=== PATIENT | male | born 1980 | race Caucasian/White ===

== ENCOUNTER 2022-10-14 17:42 | Inpatient (IN) | payer OTHER ==
[~2022-10-14] VITALS: Ht 177.8 cm; Wt 78.2 kg
[2022-10-14 18:14] LABS: BASOPHILS ABSOLUTE AUTO 0.01 K/mm3 (0.00-0.23); BASOPHILS PERCENT AUTO 0 % (0-2); EOSINOPHILS PERCENT AUTO 0 % (0-6); Hematocrit 47.4 % (37.0-53.0); Hemoglobin 16.7 g/dL (13.5-17.5); IMMATURE GRAN ABSOLUTE AUTO 0.04 K/mm3 (0.00-0.10); IMMATURE GRAN PERCENT AUTO 0 % (0-1); LYMPHOCYTES ABSOLUTE AUTO 0.69 K/mm3 (0.84-5.20); LYMPHOCYTES PERCENT AUTO 5 % (21-46); MONOCYTES ABSOLUTE AUTO 0.51 K/mm3 (0.16-1.47); MONOCYTES PERCENT AUTO 4 % (4-13); Mean Corpuscular HGB 30.1 pg (26.0-34.0); Mean Corpuscular HGB Conc 35.2 g/dL (31.5-36.5); Mean Corpuscular Volume 85 fL (80-100); Mean Platelet Volume 10.6 fL (9.1-12.4); NEUTROPHILS ABSOLUTE AUTO 12.24 K/mm3 (1.96-9.15); NEUTROPHILS PERCENT AUTO 91 % (41-73); Platelet Count 294 K/mm3 (150-400); RDW Standard Deviation 37.4 fL (35.1-46.3); Red Blood Cell Count 5.55 M/mm3 (4.30-5.90); White Blood Cell Count 13.49 K/mm3 (4.00-11.30)
[2022-10-14 18:42] LABS: Albumin, Blood 4.4 g/dL (3.4-5.0); Albumin/Globulin Ratio 1.3 (0.8-1.8); Bilirubin, Total 0.7 mg/dL (0.1-1.0); Bun/Creatinine Ratio 26.1 (12.0-20.0); Calcium, Blood 9.6 mg/dL (8.5-10.1); Creatinine, Blood 0.88 mg/dL (0.60-1.20); Globulin, Blood 3.5 g/dL (2.2-4.0); Total Protein, Blood 7.9 g/dL (6.4-8.2)
--- NOTE | 2022-10-14 23:30 | NUR ---
PT ARRIVED TO ROOM FROM ER. PT A/O, DENIES DIZZINESS WHEN UP. PT REP ABD PAIN X2 DAYS, REP N/V AT HOME, DENIES SINCE ARRIVING TO HOSPITAL. PT REP PASSING SMALL AMT FLATUS UPON ARRIVAL TO ROOM. PT REP PAIN MINIMAL AFTER MED IN ER. IVF STARTED PER ORDERS. PT ORIENTED TO ROOM, CALL LIGHT AND NPO STATUS.
[2022-10-15 04:16] LABS: Hemoglobin 13.7 g/dL (13.5-17.5); Mean Corpuscular HGB 29.8 pg (26.0-34.0); Mean Corpuscular HGB Conc 35.1 g/dL (31.5-36.5); Mean Corpuscular Volume 85 fL (80-100); Mean Platelet Volume 10.7 fL (9.1-12.4); Platelet Count 228 K/mm3 (150-400); White Blood Cell Count 9.83 K/mm3 (4.00-11.30)
[2022-10-15 04:39] LABS: Bun/Creatinine Ratio 28.8 (12.0-20.0); Creatinine, Blood 0.76 mg/dL (0.60-1.20); Potassium, Blood 3.6 mmol/L (3.5-5.5)
--- NOTE | 2022-10-15 06:28 | NUR ---
PT VSS SINCE ARRIVING TO FLOOR. PT REP ABD PAIN MILD, PAIN MGD W/TORADOL W/REP RELIEF. PT DENIED N/V, REP PASSING SMALL AMT GAS X1 EARLY IN NIGHT, DENIES SINCE. PT IS VOIDING URINE W/O DIFFICULTY. PT NPO X ICE CHIPS, IVF CONT PER ORDERS.
--- NOTE | 2022-10-16 06:01 | NUR ---
Patient slept well overnight, reported minimal pain but stated pain has decreased siginificantly since admission. PRN pain meds denied. Bowel sounds are active, patient had x1 moderate stool, and is passing gas. Patient independent in room and voiding well. Remains NPO on maint. fluids. No questions or concerns at this time.
--- NOTE | 2022-10-16 16:25 | NUR ---
SHIFT SUMMARY: PATIENT ADMITTED DUE TO SBO. PATIENT HAS HAD MULTIPLE BOWEL MOVEMENTS THROUGHOUT THE DAY; SOME SOLID, BUT MOSTLY LOOSE. THIS COULD BE DUE TO CONTRAST BEING GIVEN FOR X-RAY BOWEL STUDIES BEING COMLPETED THROUGHOUT THE DAY. PATIENT MENTIONED CONCERNS OVER NAUSEA AROUND 12PM TODAY, BUT THIS WAS RELIEVED WITH USE OF PRN ANTIEMETIC. STILL NOTES ABDOMINAL PAIN, MID UPPER ABDOMEN, AND DESCRIBES IT SHARP AND ACHY, BUT THIS IS RELIEVED WITH PRN ANLAGESIC. PATIENT HAS TRANSITIONED FROM NPO TO CLEAR LIQUID AND IS NOW ON A LOW FIBER DIET. HE IS INDEPENDENT IN AMBULATION AND HAS NO FURTHER QUESTIONS. CALL LIGHT WAS PLACED WITHIN REACH.
--- NOTE | 2022-10-16 18:23 | NUR ---
DISCHARGE SUMMARY: ORDERS PLACED FOR DISCHARGE. DISCHARGE EDUCATION AND INFORMATION GIVEN TO PATIENT FOR HIS OWN REVIEW AND REFERENCE. PATIENT DENIES PAIN AND HAS NO FURTHER QUESTIONS. PRIMARY RN WAS PRESENT DURING DISCHARGE EDUCATION.
== END 2022-10-16 18:29 | disposition home or self-care (01) | DRG 390 ==
LOC: ER 17:42 → SURS 19:40 → ER 21:09 → SURS 21:09
PROVIDERS: Student in an Organized Health Care Education/Training Program; ADMIT Surgery
PROC: BD13ZZZ Fluoroscopy of Small Bowel (ICD-10-PCS; principal; 2022-10-16)
DX: K56.609 Unspecified intestinal obstruction, unspecified as to partial versus complete obstruction (principal); R14.3 Flatulence; Z98.890 Other specified postprocedural states
CPT/HCPCS: 36415; 74250; 80048; 80053; 83605; 83735; 85025; 85027; 96361; 96374; 96375; 96376; 99283-25; G0378; J1170; J1885; J2405; J3230; J7120